=== PATIENT | female | born 1950 | race Caucasian/White ===

== ENCOUNTER 2024-11-14 18:32 | Emergency (ER) | payer OTHER, MEDICAID ==
[~2024-11-14] VITALS: Ht 157.5 cm; Wt 77.7 kg
[2024-11-14 18:38] VITALS: O2SAT 99
[2024-11-14] MEDS ORDERED: TENECTEPLASE 50MG/VIAL IV ONE (20:00)
[2024-11-14 20:01] LABS: BASOPHILS % 0.4 % (0.0-2.0); DIFFERENTIAL COMMENT 0; HEMOGLOBIN. 9.3 g/dL (12.0-16.0); LYMPHOCYTES % 26.5 % (20.0-50.0); MEAN CORPUSCULAR HEMOGLOBIN 24.4 pg (28.0-32.0); MEAN CORPUSCULAR VOLUME 76.2 fL (81.0-99.0); MEAN PLATELET VOLUME 8.4 fl (7.4-10.4); NEUTROPHILS % 63.1 % (40.0-76.0); PLATELET 212 x1000/uL (130-400); RED CELL DISTRIBUTION WIDTH 21.3 % (11.6-14.6); WHITE BLOOD COUNT 6.8 x1000/uL (4.5-11.0)
[2024-11-14] MEDS: LABETALOL 5MG/ML 4ML INJ IV PRN (20:06)
[2024-11-14 20:08] LABS: CHLORIDE 106 mEq/L (98-107); INR 1.1; POTASSIUM 4.4 mEq/L (3.5-5.1); PROTHROMBIN TIME 11.5 sec (9.6-11.0); SODIUM 142 mEq/L (136-145)
[2024-11-14 20:09] LABS: CALCIUM 9.2 mg/dL (8.7-10.4); CARBON DIOXIDE 26 mEq/L (21-32)
[2024-11-14] MEDS: NICARDIPINE 40MG/200ML PREMIX 200 ML IV ONE (20:11)
[2024-11-14 20:14] LABS: CREATININE 0.9 mg/dL (0.6-1.0); GLUCOSE 165 mg/dL (70-105); TROPONIN I HIGH SENSITIVITY 15 ng/L (3.0-34)
[2024-11-14 20:15] LABS: AMMONIA < 17 uMol/L (<32); ETHANOL BLOOD < 10 mg/dL (<10); UREA NITROGEN BLOOD 18 mg/dL (9-23)
[2024-11-14] MEDS ORDERED: TENECTEPLASE 50MG/VIAL IV NR (20:37)
[2024-11-14 21:53] VITALS: RESP 19; TEMP 36.7; O2SAT 97
[2024-11-14 22:20] VITALS: BP 135/86; PULSE 77
[2024-11-14] MEDS ORDERED: IOHEXOL-350 100 ML BOTTLE ONE (23:10)
== END 2024-11-14 22:10 | disposition short-term general hospital (02) ==
LOC: ER 18:32
DX: I63.9 Cerebral infarction, unspecified (principal); I65.22 Occlusion and stenosis of left carotid artery; E11.9 Type 2 diabetes mellitus without complications; E87.8 Other disorders of electrolyte and fluid balance, not elsewhere classified; Z55.6 Problems related to health literacy; Z95.1 Presence of aortocoronary bypass graft
CPT/HCPCS: 80048; 80320; 82140; 82962; 83605; 85025; 85610; 87040; 84484; 36415; 71045; 70496; 70498; 70450; 93005; 96365; 96375; 99291; 99292; Q9967; J3490; J3101; G0480